=== PATIENT | male | born 1945 | race Caucasian/White ===

== ENCOUNTER 2016-08-17 20:43 | Inpatient (IN) | payer MEDICARE, BC ==
[2016-08-17] MEDS ORDERED: TEMAZEPAM 15 MG CAP PO PRN (22:36)
[2016-08-17] MEDS ORDERED: HYDROmorphone 1 MG/ML 1 ML SYRINGE IV PRN (22:36)
[2016-08-17] MEDS ORDERED: ALPRAZolam 0.25 MG TAB PO PRN (22:36)
[2016-08-17] MEDS ORDERED: NALOXONE 0.4 MG/ML 1 ML VIAL IV PRN (22:36)
[2016-08-17] MEDS ORDERED: HEPARIN SODIUM,PORCINE 5,000 UNIT/ML 1 ML VIAL IV ONE (22:39)
[2016-08-17 23:15] LABS: Basophils # (A) 0.1 k/uL (0-0.2); Basophils % (A) 1 %; CH 33.1; CHCM 33.8; Eosinophils # (A) 0.1 k/uL (0-0.7); Eosinophils % (A) 1 %; HCT 34.5 % (39.0-53.0); HDW 2.11; HGB 11.4 gm/dL (13.0-17.5); Luc # (Auto) 0.15; Luc % (Auto) 2; Lymphocytes # (A) 1.6 k/uL (1.0-4.8); Lymphocytes % (A) 17 %; MCH 32.5 pg (25.0-35.0); MCHC 33.1 g/dL (31.0-37.0); MCV 98.4 fL (80.0-100.0); Mean Platelet Volume 7.3; Monocytes # (A) 0.6 k/uL (0-1.0); Monocytes % (A) 6 %; Neutrophils % (A) 74 %; RBC 3.51 m/uL (4.30-5.90); RDW 13.8 % (11.5-15.5); WBC 9.5 k/uL (3.8-10.6); WBC (Perox) 10.07
[2016-08-17 23:24] LABS: INR 1.1 (<1.1); Prothrombin Time 10.8 sec (9.0-12.0)
[2016-08-17 23:25] LABS: ALT 22 U/L (21-72); AST 27 U/L (17-59); Alkaline Phosphatase 84 U/L (38-126); Anion Gap 12 mmol/L; Blood Urea Nitrogen 10 mg/dL (9-20); Calcium 8.9 mg/dL (8.4-10.2); Carbon Dioxide 24 mmol/L (22-30); Chloride 101 mmol/L (98-107); Glucose 93 mg/dL (74-99); Magnesium 1.9 mg/dL (1.6-2.3); Non-African American GFR(MDRD) >60 (>60 ml/min/1.73 sqM); Potassium 4.1 mmol/L (3.5-5.1); Sodium 137 mmol/L (137-145); Total Bilirubin 0.5 mg/dL (0.2-1.3); Total Protein 6.7 g/dL (6.3-8.2)
[2016-08-17] MEDS ORDERED: LISINOPRIL 2.5 MG TAB PO SCH (23:45)
[2016-08-17 23:46] VITALS: BMI 16.0
[2016-08-17 23:49] LABS: Creatine Kinase MB 1.3 ng/mL (0.0-2.4)
[2016-08-17 23:52] LABS: Troponin I 0.446 ng/mL (0.000-0.034)
[2016-08-17] MEDS: HEPARIN SODIUM,PORCINE/D5W PMX 25,000 UNIT in DEXTROSE/WATER 1 500ML.BAG IV SCH (23:53)
[2016-08-17] MEDS: METOPROLOL TARTRATE 12.5 MG TAB PO SCH (23:54)
[2016-08-17] MEDS: ASPIRIN 325 MG TAB PO SCH (23:54)
[2016-08-17] MEDS: SODIUM CHLORIDE 0.9% 1,000 ML IV SCH (23:55)
[2016-08-18] MEDS ORDERED: LISINOPRIL 5 MG TAB PO STA (00:23)
[2016-08-18] MEDS: diphenhydrAMINE 25 MG CAP PO SCH ×2 (00:52→22:37)
[2016-08-18 01:23] LABS: Appearance,Urine Cloudy (Clear); Bacteria,Urine Rare /hpf; Bilirubin,Urine Negative (Negative); Glucose,Urine (UA) Negative (Negative); Ketones,Urine Negative (Negative); Leukocyte Esterase,Urine Negative (Negative); Mucus,Urine Occasional /hpf; Nitrite,Urine Negative (Negative); Particle Count 15413; Protein,Urine Trace (Negative); RBC,Urine >182 /hpf (0-5); Specific Gravity,Urine 1.008 (1.001-1.035); Squamous Epithelial Cell,Urine <1 /hpf (0-4); UA Billing (MACRO vs. MICRO) MICRO; Urobilinogen,Urine <2.0 mg/dL (<2.0); WBC,Urine 14 /hpf (0-5)
[2016-08-18 02:53] LABS: Basophils # (A) 0.1 k/uL (0-0.2); Basophils % (A) 1 %; CH 33.1; CHCM 33.8; Eosinophils # (A) 0.1 k/uL (0-0.7); Eosinophils % (A) 1 %; HCT 32.1 % (39.0-53.0); HDW 2.07; HGB 10.6 gm/dL (13.0-17.5); Luc # (Auto) 0.19; Luc % (Auto) 2; Lymphocytes % (A) 23 %; MCH 32.5 pg (25.0-35.0); MCV 98.4 fL (80.0-100.0); Mean Platelet Volume 6.4; Monocytes # (A) 0.4 k/uL (0-1.0); Monocytes % (A) 5 %; Neutrophils % (A) 69 %; RBC 3.26 m/uL (4.30-5.90); RDW 13.7 % (11.5-15.5); WBC 8.8 k/uL (3.8-10.6); WBC (Perox) 9.38
[2016-08-18 06:28] LABS: Basophils # (A) 0.1 k/uL (0-0.2); Basophils % (A) 1 %; CH 33.3; CHCM 33.8; Eosinophils # (A) 0.2 k/uL (0-0.7); Eosinophils % (A) 2 %; HDW 2.15; HGB 10.3 gm/dL (13.0-17.5); Luc # (Auto) 0.13; Luc % (Auto) 2; Lymphocytes % (A) 26 %; MCHC 32.3 g/dL (31.0-37.0); MCV 99.1 fL (80.0-100.0); Mean Platelet Volume 7.4; Monocytes # (A) 0.6 k/uL (0-1.0); Monocytes % (A) 7 %; Neutrophils # (A) 4.8 k/uL (1.3-7.7); Neutrophils % (A) 63 %; RBC 3.23 m/uL (4.30-5.90); RDW 13.8 % (11.5-15.5); WBC 7.7 k/uL (3.8-10.6); WBC (Perox) 7.53
[2016-08-18 06:35] LABS: Anion Gap 10 mmol/L; Blood Urea Nitrogen 11 mg/dL (9-20); Calcium 8.7 mg/dL (8.4-10.2); Carbon Dioxide 24 mmol/L (22-30); Chloride 103 mmol/L (98-107); Cholesterol 82 mg/dL (<200); Glucose 85 mg/dL (74-99); HDL Cholesterol 37 mg/dL (40-60); Non-African American GFR(MDRD) >60 (>60 ml/min/1.73 sqM); Potassium 3.7 mmol/L (3.5-5.1); Sodium 137 mmol/L (137-145); Triglycerides 59 mg/dL (<150)
[2016-08-18] MEDS: PANTOPRAZOLE 40 MG TABLET PO SCH (06:35)
[2016-08-18] MEDS: HEPARIN SODIUM,PORCINE 5,000 UNIT/ML 1 ML VIAL IV PRN ×4 (06:43→20:36)
[2016-08-18 07:02] LABS: Creatine Kinase MB 1.2 ng/mL (0.0-2.4)
[2016-08-18 07:06] LABS: Troponin I 0.409 ng/mL (0.000-0.034)
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
[2016-08-18] MEDS: ASPIRIN 325 MG TAB PO SCH (08:55)
[2016-08-18] MEDS: METOPROLOL TARTRATE 12.5 MG TAB PO SCH ×2 (08:55→22:37)
[2016-08-18] MEDS: LISINOPRIL 5 MG TAB PO SCH ×2 (08:55→22:37)
--- NOTE | 2016-08-18 11:01 | ECHOF ---
Referral Reason:CAD MEASUREMENTS -------- HEIGHT: 180.3 cm WEIGHT: 52.2 kg BP: 138/70 RVIDd: 2.7 cm (< 3.3) IVSd: 1.1 cm (0.6 - 1.1) LVIDd: 4.6 cm (3.9 - 5.3) LVPWd: 1.2 cm (0.6 - 1.1) IVSs: 1.7 cm LVIDs: 3.2 cm LVPWs: 1.3 cm LA Diam: 3.5 cm (2.7 - 3.8) LAESV Index (A-L): 19.67 ml/m Ao Diam: 3.9 cm (2.0 - 3.7) AV Cusp: 2.4 cm (1.5 - 2.6) MV EXCURSION: 15.293 mm (> 18.000) MV EF SLOPE: 53 mm/s (70 - 150) EPSS: 0.7 cm MV E Luis Miguel: 1.26 m/s MV DecT: 263 ms MV A Luis Miguel: 1.15 m/s MV E/A Ratio: 1.09 AV maxP.80 mmHg AV meanP.90 mmHg RAP: 5.00 mmHg RVSP: 29.84 mmHg FINDINGS -------- Sinus rhythm with extra systolic beats. This was a technically good study. The left ventricular size is normal. There is borderline concentric left ventricular hypertrophy. Overall left ventricular systolic function is mildly impaired with, an EF between 45 - 50 %. Mid anterior LV wall motion is hypokinetic. Apical anterior LV wall motion is hypokinetic. Apical septum LV wall motion is hypokinetic. The right ventricle is normal in size. The left atrium is normal in size. Normal LA size by volume 22+/-6 ml/m2. The right atrium is normal in size. There is moderate aortic valve sclerosis. Can't exclude possible Bicuspid Aov. The mitral valve leaflets are mildly thickened. Mild mitral annular calcification present. Mild mitral regurgitation is present. Mild tricuspid regurgitation present. Right ventricular systolic pressure is normal at < 35 mmHg. The pulmonic valve was not well visualized. The aortic root is dilated measuring 3.9cm. Normal inferior vena cava with normal inspiratory collapse consistent with estimated right atrial pressure of 5 mmHg. There is no pericardial effusion. CONCLUSIONS -------- 1. Sinus rhythm with extra systolic beats. 2. Normal LA size by volume 22+/-6 ml/m2. 3. There is moderate aortic valve sclerosis. 4. Can't exclude possible Bicuspid Aov. 5. The mitral valve leaflets are mildly thickened. 6. Mild mitral annular calcification present. 7. Mild mitral regurgitation is present. 8. Mild tricuspid regurgitation present. 9. Right ventricular systolic pressure is normal at < 35 mmHg. 10. The pulmonic valve was not well visualized. 11. The aortic root is dilated measuring 3.9cm. 12. This was a technically good study. 13. There is no pericardial effusion. 14. The left ventricular size is normal. 15. There is borderline concentric left ventricular hypertrophy. 16. Overall left ventricular systolic function is mildly impaired with, an EF between 45 - 50 %. 17. Mid anterior LV wall motion is hypokinetic. 18. Apical anterior LV wall motion is hypokinetic. 19. Apical septum LV wall motion is hypokinetic. 20. The right ventricle is normal in size. CLINICAL ADMINISTRATIVE COORDINATOR: Anahi Hernandez RDCS
[2016-08-18] MEDS: THIAMINE 100 MG TAB PO SCH (11:06)
[2016-08-18] MEDS: MULTIVITAMINS, THERA 1 EACH TAB PO SCH (11:06)
[2016-08-18] MEDS: SODIUM CHLORIDE 0.9% 1,000 ML IV SCH (11:06)
[2016-08-18] MEDS: FOLIC ACID 1 MG TAB PO SCH (11:06)
[2016-08-18] MEDS: HYDROcodone/APAP 5-325MG 1 EACH TAB PO PRN (11:34)
--- NOTE | 2016-08-18 12:02 | HP ---
DATE OF ADMISSION: CHIEF COMPLAINT: Change in mental status. HISTORY OF PRESENT ILLNESS: This 71-year-old gentleman with a past medical history of no significant medical illness has not been seen by physician in 30 years and recently started seeing Dr. Damien Reddy and the patient is complaining of left leg pain and some erythema and foot pain. The patient was evaluated by vascular surgeon and the peripheral vascular study showed significant of the blood flow. The patient was taking Tylenol PM morning and the family took the patient to [facility] with complaints of hallucinating. The patient was confused. The chronic pain has been worse for the last one week according to the family. Apparently, the evaluation showed minimally elevated troponin and possibility of myocardial infarction suspected and patient directly transferred to [facility] for further evaluation and treatment. There is no history of chest pain. No history of palpitations. No shortness of breath. No hematochezia or melena at this time. The blood pressure was elevated in [place]. PAST MEDICAL HISTORY: History of peripheral vascular disease. The home medications are: 1. Lipitor 40 mg q.h.s. 2. Ecotrin 81 mg daily. 3. Tylenol PM 1 tablet q.h.s. Allergies are none. FAMILY HISTORY: No history of heart disease or stroke in the family. SOCIAL HISTORY: History of smoking. No history of alcohol intake. REVIEW OF SYSTEMS: ENT: No diminished hearing or vision. CARDIOVASCULAR: As mentioned earlier. GI: No nausea. : No dysuria. NERVOUS SYSTEM: No numbness or weakness. ALLERGY/IMMUNOLOGY: No asthma or hayfever. MUSCULOSKELETAL: As mentioned earlier. HEMATOLOGY/ONCOLOGY: No history of anemia. ENDOCRINE: No history of diabetes or hypothyroidism. CONSTITUTIONAL: As mentioned earlier. DERMATOLOGY: Negative. RHEUMATOLOGY: Negative. PSYCHIATRY: As mentioned earlier.. PHYSICAL EXAMINATION: The patient is alert and oriented x3. Pulse is 80, blood pressure is 14progress mentioned earlier. Atrovent is 80, blood pressure is 170/90, respiration normal, pulse ox normal. HEENT: Conjunctivae normal. Oral mucosa moist. NECK: No jugular venous distention. No carotid bruit. No lymph node enlargement. CARDIOVASCULAR: S1 and S2, muffled. No S3, no S4. No murmur. RESPIRATORY: Breath sounds diminished at the bases. No rhonchi, no crackles. ABDOMEN: Soft, scaphoid, nontender. No mass palpable. No hepatosplenomegaly. LEGS: No edema, no swelling. Pulses diminished bilaterally excoriation present on the toes. LYMPHATICS: No lymphadenopathy of neck, axillae or groin. NERVOUS SYSTEM: Higher function as mentioned. No nystagmus. Moves all 4 limbs. No focal motor or sensory deficits. The BMI is 16.1. ASSESSMENT: 1. Elevated troponin, rule out acute myocardial infarction. 2. Confusion, hallucinations, possibly acute delirium. 3. Severe peripheral vascular disease of the left leg with pain. 4. Severe protein calorie malnutrition with body mass index of 16.1. 5. History of nicotine dependence. 6. Hypertension and accelerated hypertension. 7. FULL CODE. RECOMMENDATIONS AND DISCUSSION: This 71-year-old gentleman presented with multiple complex medical issues, will monitor the patient closely. Continue the current medications. Continue symptomatic treatment. I recommend baseline labs, troponins, EKGs, cardiology consultation, acute coronary syndrome protocol. Would also recommend a vascular surgery evaluation and continue to monitor. The patient was scheduled to have cardiology evaluation recently. Further recommendations to follow. A copy of dictation forwarded to Dr. Damien Reddy who is the primary physician. MALDONADO
[2016-08-18 13:39] LABS: Troponin I 0.285 ng/mL (0.000-0.034)
--- NOTE | 2016-08-18 14:12 | XR ---
EXAMINATION TYPE: XR chest 2V DATE OF EXAM: 08/18/2016 1:45 PM COMPARISON: NONE HISTORY: Chest pain FINDINGS: The lungs are clear and there is no pneumothorax, pleural effusion, or focal pneumonia. Hyperinflat ion compatible COPD. Hypertrophic and degenerative change of the spine noted. Apical pleural thickeni ng seen. Irregular linear changes involving this is most likely basis of scar. Apical bulla suspected . IMPRESSION: 1. Correlate for COPD and chronic interstitial lung disease such as fibrosis. 2. Irregular changes involving the right lung apex likely on the basis of scar. Correlate with CT as clinically warranted..
[2016-08-18] MEDS ORDERED: ALPRAZolam 0.25 MG TAB PO PRN (14:52)
[2016-08-18] MEDS ORDERED: ATORVASTATIN 80 MG TAB PO STA (14:52)
[2016-08-18] MEDS ORDERED: SODIUM CHLORIDE 0.9% 1,000 ML in EMPTY BAG 1 BAG IV ONE (14:52)
[2016-08-18] MEDS ORDERED: ASPIRIN 325 MG TAB PO STA (14:52)
[2016-08-18] MEDS ORDERED: ALPRAZolam 0.5 MG TAB PO PRN (14:52)
[2016-08-18] MEDS ORDERED: NITROGLYCERIN SL TABS 0.4 MG TAB SUBLINGUAL PRN (14:52)
[2016-08-18] MEDS ORDERED: ATORVASTATIN 40 MG TAB PO SCH (21:00)
--- NOTE | 2016-08-18 21:37 | PN ---
DATE OF SERVICE: 08/18/2016 This 71 -year-old gentleman admitted to the hospital with change in mental status, possibly acute delirium. The patient is being closely monitored. Seen and evaluated the patient along with nurse practitioner. Please refer to the nurse practitioner notes and impression documented as a scribe for further information. Closely follow up with cardiology.
[2016-08-18] MEDS: ATORVASTATIN 80 MG TAB PO SCH (22:37)
[2016-08-18] MEDS: risperiDONE 0.25 MG TAB PO SCH (22:37)
[2016-08-19 03:26] LABS: Anion Gap 7 mmol/L; Blood Urea Nitrogen 10 mg/dL (9-20); Calcium 8.7 mg/dL (8.4-10.2); Carbon Dioxide 26 mmol/L (22-30); Chloride 105 mmol/L (98-107); Glucose 92 mg/dL (74-99); Non-African American GFR(MDRD) >60 (>60 ml/min/1.73 sqM); Potassium 4.2 mmol/L (3.5-5.1); Sodium 138 mmol/L (137-145)
[2016-08-19 03:31] LABS: Basophils # (A) 0.1 k/uL (0-0.2); Basophils % (A) 1 %; CH 32.9; CHCM 33.1; Eosinophils # (A) 0.2 k/uL (0-0.7); Eosinophils % (A) 2 %; HCT 30.9 % (39.0-53.0); HDW 2.08; HGB 10.1 gm/dL (13.0-17.5); Luc # (Auto) 0.23; Luc % (Auto) 3; Lymphocytes # (A) 2.1 k/uL (1.0-4.8); Lymphocytes % (A) 26 %; MCH 32.6 pg (25.0-35.0); MCHC 32.7 g/dL (31.0-37.0); MCV 99.7 fL (80.0-100.0); Mean Platelet Volume 6.7; Monocytes # (A) 0.5 k/uL (0-1.0); Monocytes % (A) 7 %; Neutrophils # (A) 4.9 k/uL (1.3-7.7); Neutrophils % (A) 62 %; RDW 13.7 % (11.5-15.5); WBC (Perox) 8.33
[2016-08-19] MEDS: HEPARIN SODIUM,PORCINE/D5W PMX 25,000 UNIT in DEXTROSE/WATER 1 500ML.BAG IV SCH (04:50)
[2016-08-19] MEDS: SODIUM CHLORIDE 0.9% 1,000 ML IV SCH ×3 (04:53→18:52)
[2016-08-19] MEDS: HEPARIN SODIUM,PORCINE 5,000 UNIT/ML 1 ML VIAL IV PRN (05:00)
[2016-08-19] MEDS: LISINOPRIL 5 MG TAB PO SCH ×2 (07:50→20:30)
[2016-08-19] MEDS: PANTOPRAZOLE 40 MG TABLET PO SCH (07:50)
[2016-08-19] MEDS: METOPROLOL TARTRATE 12.5 MG TAB PO SCH ×2 (07:50→20:30)
[2016-08-19] MEDS: ASPIRIN 325 MG TAB PO SCH (07:50)
[2016-08-19] MEDS: MULTIVITAMINS, THERA 1 EACH TAB PO SCH (08:34)
[2016-08-19] MEDS: FOLIC ACID 1 MG TAB PO SCH (08:34)
[2016-08-19] MEDS: THIAMINE 100 MG TAB PO SCH (08:34)
[2016-08-19] MEDS ORDERED: fentaNYL (PF) 50 MCG/ML 2 ML AMP ONE (14:36)
[2016-08-19] MEDS ORDERED: diphenhydrAMINE 50 MG/ML 1 ML VIAL ONE (14:36)
[2016-08-19] MEDS ORDERED: diphenhydrAMINE 50 MG/ML 1 ML VIAL IVP ONE (14:41)
[2016-08-19] MEDS ORDERED: fentaNYL (PF) 50 MCG/ML 2 ML AMP IV ONE (14:41)
[2016-08-19] MEDS ORDERED: LIDOCAINE 2% INJ 20 MG/ML SQ ONE ×2 (14:45)
[2016-08-19] MEDS ORDERED: VERAPAMIL SYRINGE (5 MG/10 ML) INTRAARTER ONE (14:47)
[2016-08-19] MEDS ORDERED: HEPARIN SODIUM 1,000 UNIT/ML VIAL ONE (14:49)
[2016-08-19] MEDS ORDERED: LABETALOL SYRINGE 5 MG/ML ONE (15:08)
[2016-08-19] MEDS ORDERED: LABETALOL SYRINGE 5 MG/ML IV ONE (15:11)
[2016-08-19] MEDS ORDERED: IOHEXOL 350 MG/ML 100 ML BOTTLE INJ ONE (15:25)
[2016-08-19] MEDS ORDERED: RX INFO: IV CONTRAST WAS GIVEN 1 EACH MISC MISCELLANE PRN (15:38)
--- NOTE | 2016-08-19 18:08 | P.PN ---
Subjective Date of service 08/18/2016 Progress note being dictated for Dr. Mims. Interval history: This a 71-year-old gentleman admitted with elevated troponin, ruling out acute MD, acute delirium and multiple other medical issues. Maintained on heparin drip. Evaluated by cardiology and cardiac cath planned for tomorrow. Confusion persists, improving. Chest x-ray reporting COPD, chronic interstitial lung disease possible fibrosis, irregular changes involving right lung apex possible scar. Vascular surgery consult in place with recommendations pending in regards to severe peripheral vascular disease of the left leg, dilated aortic root. Echo reporting mildly impaired LV function, EF 45-50%, mid anterior, apical anterior, apical septum and hypokinetic LV, dilated aortic root 3.9 cm.Denies chest pain, palpitations or increasing shortness of breath . Objective - Vital Signs Vital signs: Vital Signs Temp 97 F L 08/19/16 08:00 Pulse 68 08/19/16 08:00 Resp 18 08/19/16 08:00 BP 141/62 08/19/16 08:00 Pulse Ox 98 08/19/16 08:00 Intake & Output 08/18/16 08/19/16 08/19/16 18:59 06:59 18:59 Intake Total 969.046 305.795 0 Output Total 600 1600 Balance 369.046 -1294.205 0 Weight 52.3 kg 52.6 kg Intake: IV 180 Heparin Sodium,Porcine/ 30 D5w Pmx 25,000 unit In Dextrose/Water 1 500ml. bag @ 12 UNITS/KG/HR 12. 55 mls/hr IV .Q24H [facility] Rx #:[id number] Sodium Chloride 0.9% 1, 150 000 ml @ 75 mls/hr IV . [id number] [facility] Rx#:[id number] Intake, IV Titration 109.046 305.795 Amount Heparin Sodium,Porcine/ 109.046 305.795 D5w Pmx 25,000 unit In Dextrose/Water 1 500ml. bag @ 12 UNITS/KG/HR 12. 55 mls/hr IV .Q24H [facility] Rx #:[id number] Oral 680 0 0 Output: Urine 600 1600 Other: Voiding Method Urinal Urinal # Bowel Movements 1 - Exam PHYSICAL EXAM: VITAL SIGNS: [Temperature 98.9, pulse 73, respiratory rate 18, blood pressure 138/70, O2 sat 98% on room air] GENERAL: [Sitting up in bed, confused, no acute distress] HEENT: [Pupils equal conjunctiva normal.] NECK: [Supple, no JVD] RESPIRATORY EFFORT:[Normal] LUNGS: [Lungs essentially clear, bilateral bases diminished, no crackles, no wheezing, occasional scattered rhonchi] CARDIOVASCULAR[regular S1 and S2, no edema] GI: [Abdomen soft, scaphoid, nontender, positive bowel sounds, no hepatomegaly.] PSYCH: [Alert and oriented -2, pleasantly confused] NEURO: Higher functions as previously mentioned, moves all 4 extremities. Strength and sensation grossly intact. - Labs CBC & Chem 7: 08/19/16 03:02 08/19/16 03:02 Labs: Abnormal Lab Results - Last 24 Hours (Table) 08/18/16 08/18/16 08/18/16 Range/Units 11:56 11:56 19:18 RBC (4.30-5.90) m/uL Hgb (13.0-17.5) gm/dL Hct (39.0-53.0) % APTT 31.9 H 43.6 H (22.0-30.0) sec Creatinine (0.66-1.25) mg/dL Troponin I 0.285 H* (0.000-0.034) ng/mL 08/19/16 08/19/16 08/19/16 Range/Units 03:02 03:02 03:02 RBC 3.10 L (4.30-5.90) m/uL Hgb 10.1 L (13.0-17.5) gm/dL Hct 30.9 L (39.0-53.0) % APTT 40.5 H (22.0-30.0) sec Creatinine 0.60 L (0.66-1.25) mg/dL Troponin I (0.000-0.034) ng/mL Assessment and Plan Plan: 1. Elevated troponins, ruling out acute MD, troponins 0.446, 0.409, 0.285. 2. Confusion, hallucinations, possibly acute delirium, acute metabolic encephalopathy, multifactorial. 3. [Severe peripheral vascular disease of the left leg with pain]. 4. [Severe protein calorie malnutrition, BMI 16.1]. 5. [Nicotine dependence, history of]. 6. Hypertension]. 7. [COPD, chronic interstitial lung disease possible fibrosis, irregular changes involving right lung apex possible scar. 8. Dilated aortic root 3.9 cm 9. Moderate aortic valve sclerosis 10.impaired LV function, EF 45-50% per echo. Plan: Continue on current medication regime ,monitoring and symptomatic treatment. Maintain acute coronary syndrome pathway. Risperdal added to med regime for delirium, encephalopathy. As mentioned above scheduled for cardiac catheterization tomorrow. Family updated at bedside who verbalizes understanding and agreement with plan of care. Follow closely with cardiology. Further recommendations to follow. The impression and plan of care has been dictated as directed. : I performed a H&P examination of this patient and discussed the same with the dictator. I agree with the dictator's note. Any additional findings/opinions/ etc. will be noted.
--- NOTE | 2016-08-19 18:12 | P.PN ---
Subjective Date of service 08/19/2016 Progress note being dictated for Dr. Mims. Interval history: This a 71-year-old gentleman admitted with elevated troponin, ruling out acute ME, acute delirium and multiple other medical issues. Maintained on heparin drip. Awaiting cardiac catheterization today. Yesterday Risperdal added to med regime, Improving sensorium. Vascular surgery recommendations pending. Denies chest pain, palpitations or increasing shortness of breath . Objective - Vital Signs Vital signs: Vital Signs Temp 97 F L 08/19/16 08:00 Pulse 68 08/19/16 08:00 Resp 18 08/19/16 08:00 BP 141/62 08/19/16 08:00 Pulse Ox 98 08/19/16 08:00 Intake & Output 08/18/16 08/19/16 08/19/16 18:59 06:59 18:59 Intake Total 969.046 305.795 132.691 Output Total 600 1600 Balance 369.046 -1294.205 132.691 Weight 52.3 kg 52.6 kg Intake: IV 180 Heparin Sodium,Porcine/ 30 D5w Pmx 25,000 unit In Dextrose/Water 1 500ml. bag @ 12 UNITS/KG/HR 12. 55 mls/hr IV .Q24H [facility] Rx #:[id number] Sodium Chloride 0.9% 1, 150 000 ml @ 75 mls/hr IV . [id number] [facility] Rx#:[id number] Intake, IV Titration 109.046 305.795 132.691 Amount Heparin Sodium,Porcine/ 109.046 305.795 132.691 D5w Pmx 25,000 unit In Dextrose/Water 1 500ml. bag @ 12 UNITS/KG/HR 12. 55 mls/hr IV .Q24H [facility] Rx #:[id number] Oral 680 0 0 Output: Urine 600 1600 Other: Voiding Method Urinal Urinal # Bowel Movements 1 - Exam PHYSICAL EXAM: VITAL SIGNS: [Temperature 98.9, pulse 73, respiratory rate 18, blood pressure 138/70, O2 sat 98% on room air] GENERAL: [Sitting up in bed, no acute distress] HEENT: [Pupils equal conjunctiva normal.] NECK: [Supple, no JVD] RESPIRATORY EFFORT:[Normal] LUNGS: [Lungs essentially clear, bilateral bases diminished, no crackles, no wheezing, occasional scattered rhonchi] CARDIOVASCULAR[regular S1 and S2, no edema] GI: [Abdomen soft, scaphoid, nontender, positive bowel sounds, no hepatomegaly.] PSYCH: [Alert and oriented -2, mildl confusion] NEURO: Higher functions as previously mentioned, moves all 4 extremities. Strength and sensation grossly intact. - Labs CBC & Chem 7: 08/19/16 03:02 08/19/16 03:02 Labs: Abnormal Lab Results - Last 24 Hours (Table) 08/18/16 08/18/16 08/18/16 Range/Units 11:56 11:56 19:18 RBC (4.30-5.90) m/uL Hgb (13.0-17.5) gm/dL Hct (39.0-53.0) % APTT 31.9 H 43.6 H (22.0-30.0) sec Creatinine (0.66-1.25) mg/dL Troponin I 0.285 H* (0.000-0.034) ng/mL 08/19/16 08/19/16 08/19/16 Range/Units 03:02 03:02 03:02 RBC 3.10 L (4.30-5.90) m/uL Hgb 10.1 L (13.0-17.5) gm/dL Hct 30.9 L (39.0-53.0) % APTT 40.5 H (22.0-30.0) sec Creatinine 0.60 L (0.66-1.25) mg/dL Troponin I (0.000-0.034) ng/mL Assessment and Plan Plan: 1. Elevated troponins, ruling out acute ME, troponins 0.446, 0.409, 0.285. Cardiac cath pending. 2. Confusion, hallucinations, possibly acute delirium, acute metabolic encephalopathy, multifactorial. 3. [Severe peripheral vascular disease of the left leg with pain]. 4. [Severe protein calorie malnutrition, BMI 16.1]. 5. [Nicotine dependence, history of]. 6. Hypertension]. 7. [COPD, chronic interstitial lung disease possible fibrosis, irregular changes involving right lung apex possible scar. 8. Dilated aortic root 3.9 cm 9. Moderate aortic valve sclerosis 10.impaired LV function, EF 45-50% per echo. Plan: Continue on current medication regime ,monitoring and symptomatic treatment. Cardiac catheterization pending. Family updated .vascular surgery recommendations pending .Follow closely with cardiology. Further recommendations to follow. The impression and plan of care has been dictated as directed. : I performed a H&P examination of this patient and discussed the same with the dictator. I agree with the dictator's note. Any additional findings/opinions/ etc. will be noted.
--- NOTE | 2016-08-19 18:58 | CONS ---
DATE OF CONSULTATION: This patient is a 71-year-old gentleman who has been admitted to [facility]. Patient having some cardiac work-up. He has a history of chronic peripheral vascular disease. Patient was consulted for vascular evaluation. Patient is having echocardiogram and under the care of cardiology for possible positive troponin. MEDICAL HISTORY: History of peripheral vascular disease. The patient has not been seen by a doctor for many years. SOCIAL HISTORY: History of smoking. No history of alcohol intake. On examination, patient was seen in his room. Patient has a chronic cough with upper respiratory infection. Neck is supple. No bruit appreciated. Chest examinations: first and second sounds are normal. Patient has breath sounds are diminished at the lung bases. ABDOMEN: Soft, nontender. Vascular examination, left femoral is not palpable. Right femoral is 1+. Posterior tibial dorsalis pedis is not palpable. Patient has some superficial ulceration of the toes. IMPRESSION: 1. Peripheral vascular disease, chronic. 2. Patient has cardiac work-up. PLAN: When patient is stable enough, then we will scheduled him for angiogram. In the meantime, if patient wants to go home, I can follow up in my office, we will rescheduled for angiogram. I will discuss with Dr. Mims for further management.
--- NOTE | 2016-08-19 19:25 | P.PCN ---
Date of Procedure: 08/19/16 Preoperative Diagnosis: Non-STEMI Postoperative Diagnosis: Multivessel coronary artery disease Procedure(s) Performed: Left heart catheterization without left ventriculography Description of Procedure: HISTORY: This is a 71-year-old gentleman with history of peripheral vascular disease who is being considered for surgery. Patient was recently seen in the emergency room of a different hospital and was noted to have positive troponin values and abnormal EKG. Patient was transferred to [facility] for further cardiac evaluation. Patient has dementia and generalized frail medical status. Family requested that patient be evaluated by cardiac catheterization to see if he could be a candidate for peripheral vascular surgery. We discussed with the family about the risks of the procedure and also patient's generalized ill health may make him have poor candidate for surgical intervention. However family insisted to have this procedure done. Patient consented after discussing with the family members at length. CONSENT:I have discussed the risks, benefits and alternative therapies for the above-mentioned procedure and for both sedation/analgesia as well as necessary blood product administration, if indicated, as they pertain to this patient. The patient has indicated understanding and acceptance of the risks and procedures discussed. PROCEDURE: Patient was brought to the lab in a fasting state. Patient was given some IV sedation. The right wrist is infiltrated with lidocaine and right radial artery was entered using Seldinger technique. A 6-Lao catheter was left in place and selective coronary arteriography was performed. Patient tolerated the procedure well. Wrist band was applied for hemostasis. No immediate complications were noted and patient was transferred to [facility] in a stable condition HEMODYNAMICS: The aortic pressure is 170/80. Left ankle end-diastolic pressure is 25. There was no gradient across the aortic valve SELECTIVE CORONARY ARTERIOGRAPHY: LEFT MAIN: Is of normal length with suggestion of mild to moderate stenosis distally with 40% luminal narrowing THE LEFT ANTERIOR DESCENDING CORONARY ARTERY: This is a moderate caliber vessel with a diffuse plaque. At the origin of the diagonal and also septal branches there appears to be plaque both in the diagonal and also LAD with noncritical stenosis. THE LEFT CIRCUMFLEX AND IS CORONARY ARTERY: Moderate caliber vessel with mild diffuse disease THE RIGHT CORONARY ARTERY: This is a dominant vessel with a significant calcification involving the proximal and mid segments. There is eccentric 80% stenosis involving the proximal segment in the ostium. There is on of the 80-90% stenosis in the mid RCA. LEFT VENTRICULOGRAPHY: Not performed FINAL IMPRESSION: Diffuse coronary artery disease with noncritical stenosis in the left main and also the left anterior descending. Right coronary artery has significant disease involving the ostium and proximal segment and also in the mid segment. This vessel is heavily calcified especially in the ostium PLAN: Films were reviewed with the Dr. Terrazas. He felt that patient is not a good candidate for percutaneous intervention because of the extensive calcification noted especially in the ostium and proximal right coronary artery. He recommended continuation of maximal medical therapy. It is also felt that patient would be high risk candidate for vascular surgery. Family was informed. Prognosis is guarded. PROGNOSIS:
[2016-08-19] MEDS: diphenhydrAMINE 25 MG CAP PO SCH (20:30)
[2016-08-19] MEDS: ATORVASTATIN 80 MG TAB PO SCH (20:30)
[2016-08-19] MEDS: risperiDONE 0.25 MG TAB PO SCH (20:31)
[2016-08-20] MEDS: SODIUM CHLORIDE 0.9% 1,000 ML IV SCH (05:07)
[2016-08-20] MEDS: PANTOPRAZOLE 40 MG TABLET PO SCH (06:36)
[2016-08-20 06:43] LABS: Basophils % (A) 1 %; CH 32.7; CHCM 32.9; Eosinophils # (A) 0.1 k/uL (0-0.7); Eosinophils % (A) 1 %; HCT 29.8 % (39.0-53.0); HDW 2.17; HGB 9.5 gm/dL (13.0-17.5); Luc # (Auto) 0.14; Luc % (Auto) 2; Lymphocytes # (A) 1.1 k/uL (1.0-4.8); Lymphocytes % (A) 16 %; MCV 99.9 fL (80.0-100.0); Mean Platelet Volume 7.5; Monocytes # (A) 0.4 k/uL (0-1.0); Monocytes % (A) 6 %; Neutrophils # (A) 5.5 k/uL (1.3-7.7); Neutrophils % (A) 75 %; RBC 2.98 m/uL (4.30-5.90); RDW 13.8 % (11.5-15.5); WBC 7.3 k/uL (3.8-10.6); WBC (Perox) 7.65
[2016-08-20 06:58] LABS: Anion Gap 10 mmol/L; Blood Urea Nitrogen 11 mg/dL (9-20); Calcium 8.9 mg/dL (8.4-10.2); Carbon Dioxide 28 mmol/L (22-30); Chloride 103 mmol/L (98-107); Glucose 103 mg/dL (74-99); Non-African American GFR(MDRD) >60 (>60 ml/min/1.73 sqM); Potassium 4.4 mmol/L (3.5-5.1); Sodium 141 mmol/L (137-145)
[2016-08-20] MEDS: THIAMINE 100 MG TAB PO SCH (08:08)
[2016-08-20] MEDS: LISINOPRIL 5 MG TAB PO SCH (08:08)
[2016-08-20] MEDS: MULTIVITAMINS, THERA 1 EACH TAB PO SCH (08:08)
[2016-08-20] MEDS: METOPROLOL TARTRATE 12.5 MG TAB PO SCH (08:08)
[2016-08-20] MEDS: FOLIC ACID 1 MG TAB PO SCH (08:08)
[2016-08-20] MEDS: ASPIRIN 325 MG TAB PO SCH (08:08)
[2016-08-20] MEDS: HYDROcodone/APAP 5-325MG 1 EACH TAB PO PRN (08:15)
[2016-08-20 08:26] VITALS: TEMP 97.1
--- NOTE | 2016-08-20 08:49 | PN ---
DATE OF SERVICE: 08/19/2016 This 71-year-old gentleman who was admitted with change in mental status also had elevated troponin. Cardiac catheterization showed diffuse coronary artery disease with noncritical stenosis in the left main as well as left anterior descending also. Seen and evaluated the patient along with the nurse practitioner. Please refer to the nurse practitioner notes and impression documented for further information. Medical treatment per Cardiology. Guarded prognosis. Further recommendations to follow.
[2016-08-20 12:47] VITALS: BP 168/75; PULSE 69; RESP 18
[2016-08-20] MEDS ORDERED: CLOPIDOGREL 75 MG TAB PO SCH (14:15)
--- NOTE | 2016-08-20 15:45 | P.PN ---
Subjective This is a 71-year-old gentleman with history of nicotine dependence, hypertension, hyperlipidemia, peripheral vascular disease, occasional EtOH use who was a transfer here from [facility]. He is unsure himself exactly of why he is here, however upon review of the records from [place], it appears that the patient was experiencing mental status changes and hallucinations. Patient does have a reddened area on his left foot, he states that this has been present for a very long time, he has been experiencing more pain in that left foot recently especially over the past one week. Patient was scheduled to be seen in our office as an inpatient in the upcoming week. Patient ruled in for non-Q-wave myocardial infarction and was recommended to undergo cardiac catheterization. Cardiac catheterization was performed yesterday by Dr. Acosta which revealed diffuse coronary artery disease with non-critical stenosis in the left main and also the left anterior descending artery. Right coronary artery has significant disease involving the ostium and proximal segment and also the midsegment. Maximal medical therapy was advised. Patient was seen and examined this morning, denied any chest pain or difficulty in breathing. He was initiated today on Plavix. Objective - Vital Signs Vital signs: Vital Signs Temp 97.1 F L 08/20/16 08:00 Pulse 69 08/20/16 12:00 Resp 18 08/20/16 12:00 BP 168/75 08/20/16 12:00 Pulse Ox 100 08/20/16 12:00 Intake & Output 08/19/16 08/20/16 08/20/16 18:59 06:59 18:59 Intake Total 472.691 150 120 Output Total 400 1200 400 Balance 72.691 -1050 -280 Weight 52.6 kg Intake: IV 100 Intake, IV Titration 132.691 Amount Heparin Sodium,Porcine/ 132.691 D5w Pmx 25,000 unit In Dextrose/Water 1 500ml. bag @ 12 UNITS/KG/HR 12. 55 mls/hr IV .Q24H [facility] Rx #:[id number] Oral 240 150 120 Output: Urine 400 1200 400 - Exam PHYSICAL EXAMINATION: 71-year-old somewhat emaciated male. HEENT: Head is atraumatic, normocephalic. Pupils equal, round. Neck is supple. There is no elevated jugular venous pressure. HEART EXAMINATION: Heart S1, S2 normal. No murmur or gallop heard. CHEST EXAMINATION: Lungs are clear to auscultation and precussion. No chest wall tenderness is noted on palpation or with deep breathing. ABDOMEN: Soft, nontender. Bowel sounds are heard. No organomegaly noted. EXTREMITIES: Doppler to 1+ peripheral pulses with no evidence of peripheral edema and no calf tenderness noted. Left foot is red in color, there is a small ulcerated area on the second toe. Right radial site clean and dry, good distal pulse. NEUROLOGIC patient is awake, alert and oriented -2. . - Labs CBC & Chem 7: 08/20/16 06:04 08/20/16 06:04 Labs: Abnormal Lab Results - Last 24 Hours (Table) 08/20/16 08/20/16 Range/Units 06:04 06:04 RBC 2.98 L (4.30-5.90) m/uL Hgb 9.5 L (13.0-17.5) gm/dL Hct 29.8 L (39.0-53.0) % Glucose 103 H (74-99) mg/dL Assessment and Plan Plan: Assessment and plan #1 mental status changes, and initial CT of the brain negative for any acute findings. #2 abnormal troponin values, not consistent with acute coronary syndrome, 0.5, 0.4, 0.4. EKG shows normal sinus rhythm with occasional PVC and nonspecific inferior lateral ST-T wave changes. Patient denies having any chest discomfort or difficulty in breathing. #3 hypertension #4 hyperlipidemia #5 peripheral vascular disease #6 long-standing history of nicotine dependence #7 status post cardiac catheterization, which revealed diffuse coronary artery disease, maximal medical therapy was advised. Plan Perspective, patient may be able to be discharged home today. We have added Plavix 75 mg 1 tablet daily to his medication regime. A follow-up appointment will be made with Dr. Acosta in the office post discharge. DNP note has been reviewed, I agree with a documented findings and plan of care. Patient was seen and examined.
--- NOTE | 2016-08-21 14:08 | DS ---
DATE OF ADMISSION: 08/17/2016 DATE OF DISCHARGE: 08/20/2016 DATE OF SERVICE: 08/20/2016 FINAL DIAGNOSES: 1. Elevated troponin with possible acute non-ST segment elevation myocardial infarction with troponin 0.446, status post cardiac catheterization showing diffuse coronary artery disease with noncritical stenosis of the left main and also left anterior descending artery and as well as right coronary artery with significant disease of the ostium and proximal segment and also in mid segment with heavily calcified vessels. 2. Confusion, hallucination, possibly acute delirium, acute metabolic encephalopathy multifactorial. 3. Severe peripheral vascular disease on the left leg and pain. 4. Severe protein calorie malnutrition, body mass index 16.1. 5. History of nicotine dependence. 6. Hypertension. 7. Chronic obstructive pulmonary disease, interstitial lung disease and possible fibrosis, irregular changes involving the right lung apex, possible scar. 8. Dilated aortic root 3.9 cm. 9. Moderate aortic valve sclerosis. 10. Impaired left ventricular dysfunction, ejection fraction 45% to 50% with congestive heart failure with chronic systolic dysfunction. 11. FULL CODE. DISCHARGE DISPOSITION: The patient will be discharged in a stable condition with guarded prognosis. Cardiology cleared the patient for the discharge. HISTORY OF PRESENT ILLNESS: This 71-year-old gentleman with a past medical history of multiple medical problems as mentioned earlier being followed by Dr. Damien Reddy in the outpatient setting was admitted with change in mental status as well as features of myocardial infarction with significantly elevated troponin. The patient had a cardiac catheterization, findings as above. Medical treatment was recommended. The patient is improved. The patient was treated symptomatically. Patient On exam, vitals are stable. CARDIOVASCULAR: S1 and S2, muffled. ABDOMEN: Soft. NERVOUS SYSTEM: No focal deficits. DISCHARGE ADVICE: 1. Diet is cardiac. 2. Activity limited until followup. 3. Follow up with primary physician in 2 to 3 days. 4. Follow up with Dr. Patel and Dr. Acosta as recommended. Medications are: 1. Acetaminophen diphenhydramine 1 tablet q.h.s. 2. Ecotrin 81 mg q.h.s. 3. Lipitor 80 mg q.h.s. 4. Plavix 75 mg p.o. daily. 5. Folic acid 1 mg daily. 6. Hydrocodone 5 mg q.4 p.r.n. 7. Zestril 5 mg p.o. b.i.d. 8. Lopressor 12.5 mg p.o. b.i.d. 9. Multivitamins 1 p.o. daily. 10. Nitrostat 0.4 sublingual p.r.n. 11. Protonix 40 mg daily. 12. Vitamin B-1, Thiamine, 100 mg p.o. daily. 13. Risperdal 0.125 mg q.h.s. MTDD
== END 2016-08-20 15:25 | disposition home health service (06) | DRG 280 ==
LOC: 6SEL 22:04
PROVIDERS: ADMIT Hospitalist; ATTEND Hospitalist
PROC: B2111ZZ Fluoroscopy of Multiple Coronary Arteries using Low Osmolar Contrast (ICD-10-PCS; 2016-08-19)
PROC: B2151ZZ Fluoroscopy of Left Heart using Low Osmolar Contrast (ICD-10-PCS; 2016-08-19)
PROC: 4A023N7 Measurement of Cardiac Sampling and Pressure, Left Heart, Percutaneous Approach (ICD-10-PCS; principal; 2016-08-19 14:20)
DX: I21.4 Non-ST elevation (NSTEMI) myocardial infarction (principal); E43 Unspecified severe protein-calorie malnutrition; J84.9 Interstitial pulmonary disease, unspecified; G93.41 Metabolic encephalopathy; I50.22 Chronic systolic (congestive) heart failure; I11.0 Hypertensive heart disease with heart failure; F03.90 Unspecified dementia, unspecified severity, without behavioral disturbance, psychotic disturbance, mood disturbance, and anxiety; J84.10 Pulmonary fibrosis, unspecified; J44.9 Chronic obstructive pulmonary disease, unspecified; Z68.1 Body mass index [BMI] 19.9 or less, adult; R44.3 Hallucinations, unspecified; L97.521 Non-pressure chronic ulcer of other part of left foot limited to breakdown of skin; I77.810 Thoracic aortic ectasia; I73.9 Peripheral vascular disease, unspecified; I35.8 Other nonrheumatic aortic valve disorders; G89.29 Other chronic pain; I49.3 Ventricular premature depolarization; I25.10 Atherosclerotic heart disease of native coronary artery without angina pectoris; E78.5 Hyperlipidemia, unspecified; R41.0 Disorientation, unspecified; F17.200 Nicotine dependence, unspecified, uncomplicated; Z83.3 Family history of diabetes mellitus; Z80.51 Family history of malignant neoplasm of kidney; Z82.0 Family history of epilepsy and other diseases of the nervous system; Z82.49 Family history of ischemic heart disease and other diseases of the circulatory system; Z79.82 Long term (current) use of aspirin; Z79.899 Other long term (current) drug therapy; Z83.6 Family history of other diseases of the respiratory system; Z87.81 Personal history of (healed) traumatic fracture
CPT/HCPCS: 71020; 80048; 80053; 80061; 81001; 82550; 82553; 83735; 84484; 85025; 85610; 85730; 93306; 93458